=== PATIENT | female | born 1960 | race Caucasian/White ===

== ENCOUNTER 2024-12-31 15:57 | Outpatient (REF) | payer MEDICARE, SELFPAY ==
--- OUTSIDE RECORDS SUMMARY | 2024-12-31 14:45 | XMS_ITS | Encounter Summary ---
Author Organization [employer] Address [address] [facility] 7[address] [place] [address] Care Team Providers Care Senior Svp Name Role Phone Humza Centeno MD Primary Care Prov ider Reason for Referral * Imaging (Routine) - Authorized Specialty Diagnoses / Procedures Referred By Contac t Referred To Contact Radiology Diagnoses Encounter for screening mammogram for malignant neoplasm of breast Procedures BI Mammogram Screening Tomosynthesis Bilateral Humza Centeno MD [address] [place] [address] Phone: tel: fax: [address] Phone: tel: fax: Referral ID Status Reason Start Date Expiration Date V isits Requested Visits Authorized [id number] Authorized 12/31/2024 12/31/2025 1 1 Encounter Details Date Type Department Care Team (Late st Contact Info) Description 12/31/2024 2:45 PM EDT Office Visit [facility] [address] [place], [place] [phone] Humza Centeno MD [address] [place] [address] Encounter for screening mammogram for malignant neoplasm of breast (Primary Dx); Overweight; Pain in both feet; Anemia, unspecified type; Screening-pulmonary TB Social History Tobacco Use Types Packs/Day Years Used Date Smoking Tobacco: Never Smokeless Tobacco: Never Alcohol Use Standard Drinks/Week Comments Never 0 (1 standard drink = 0.6 oz pur e alcohol) Depression Answer Date Recorded Patient Health Questionnaire-9 Score 2 12/31/2024 Patient Health Questionnaire-9 Score 2 12/31/2024 Last PHQ-9: Questionnaire Data Not on file 0 12/31/2024 Housing Stability Answer Date Recorded What is your housing situation today? I have winter schmidt 12/31/[address] you li ve. Do you have problems with any of the following? None of the above 12/31/2024 Food Insecurity Answer Date Recorded Within the past 12 months, y ou worried that your food would run out before you got money to buy more: Never True 12/31/2024 Within the past 12 months,th e food you bought just didn't last and you didn't have enough money to get more: Never True Transportation Answer Date Recorded In the past 12 months, has l ack of transportation kept you from medical appts, meetings, work or from getting things needed for daily living? No 12/31/2024 Utilities Answer Date Recorded In the past 12 months, has t he electric, gas, oil or water company threatened to shut off services in your home? No 12/31/2024 Depression Answer Date Recorded Patient Health Questionnaire-2 Score 1 12/31/2024 Internet Access Answer Date Recorded Internet Access Q1 Yes 12/31/2024 Internet Access Q2 Not on file 12/31/2024 Comments Unknown Sex and Gender Information Value Date Recorded Sex Assigned at Female 02/05/2022 10:32 AM EDT Legal Sex Female 10:32 AM EDT Gender Identity Female 11/17/2024 11:14 AM EDT Sexual Orientation Straight 11/17/2024 11 :14 AM EDT documented as of this encounter Last Filed Vital Signs Vital Sign Reading Time Taken Comments Blood Pressure 142/78 12/31/2024 2:54 PM EDT Pulse 80 12/31/2024 2:54 PM EDT Temperature 37.1 C (98.7 F) 12/31/2024 2:54 PM EDT Respiratory Rate 20 12/31/2024 2:54 PM EDT Oxygen Saturation - - Inhaled Oxygen Concentration - - Weight 71.7 kg (158 lb) 12/31/2024 2:54 PM EDT Height - - Body Mass Index - - documented in this encounter Functional Status * Over the past 2 weeks, how often have you been bothered by any of the following problems? Question Answer Date of Assessment Author Patient Health Questionnaire-2 Score 1 12/08 3:08 PM CAMILAT Sindy Chisholm MA * Little interest or pleasure in doing things Answer Date of Assessment Author Not at all 12/31/2024 3:08 PM EDT Jing Chisholm MA * Feeling down, depressed, or hopeless Answer Date of Assessment Author Several days 12/31/2024 3:08 PM Jing Jones MA * Trouble falling or staying asleep, or sleeping too much Answer Date of Assessment Author Not at all 12/31/2024 3:08 PM Jing Jones MA * Feeling tired or having little energy Answer Date of Assessment Author Not at all 12/31/2024 3:08 PM Jing Jones MA * Poor appetite or overeating Answer Date of Assessment Author Several days 12/31/2024 3:08 PM Jing Jones MA * Feeling bad about yourself - or that you are a failure or have let yourself or your family down Answer Date of Assessment Author Not at all 12/31/2024 3:08 PM Jing Jones MA * Trouble concentrating on things, such as reading the newspaper or watching television Answer Date of Assessment Author Not at all 12/31/2024 3:08 PM Jing Jones MA * Moving or speaking so slowly that other people could have noticed? Or the opposite - being so fidgety or restless that you have been moving around a lot more than usual. Answer Date of Assessment Author Not at all 12/31/2024 3:08 PM Jing Jones MA * Thoughts that you would be better off or hurting yourself in some way Answer Date of Assessment Author Not at all 12/31/2024 3:08 PM Jing Jones MA * Patient Health Questionnaire-9 Score Answer Date of Assessment Author 2 12/31/2024 3:08 PM Jing Jones MA * How difficult have these problems made it for you to do your work, take care of things at home, or get along with other people? Answer Date of Assessment Author Not difficult at all 12/31/2024 3:08 PM EDT Sindy Arboleda MA documented as of this encounter Plan of Treatment Upcoming Encounters Date Type Department Care Team (Late st Contact Info) Description 02/23/2025 4:00 PM EST Office Visit [facility] [address] [place] [address] Humza Centeno MD [address] [place] [address] Scheduled Orders Name Type Priority Associated Diagnoses Orde r Schedule HIV-1/2 Antigen and Antibodies, Fourth Generation, with Reflexes Lab Routine Overweight Expected: 12/31/2024 (Approximate), Expires: 12/31/2025 Hepatitis C Antibody with Reflex to HCV, RNA, Quantitative, Real-Time PCR Lab Routine Overweight Expected: 12/31/2024, Expires: 12/31/2025 BI Mammogram Screening Tomosynthesis Bilateral Imaging Routine Encounter for screening mammogram for malignant neoplasm of breast Expected: 12/31/2024, Expires: 03/02/2026 XR Foot 3+ Views Right Imaging Routine Pain in both feet Expected: 12/31/2024, Expires: 12/31/2025 XR Foot 3+ Views Left Imaging Routine Pain in both feet Expected: 12/31/2024, Expires: 12/31/2025 T-SPOT .TB Lab Routine Screening-pulmonary TB Expected: 12/31/2024 (Approximate), Expires: 12/31/2025 documented as of this encounter Procedures Procedure Name Priority Date/Time Associated Diagnosis Comments VITAMIN B12/FOLATE, SERUM PANEL Routine 12/31/2024 4:09 PM EDT Anemia, unspecified type TSH W/REFLEX TO FT4 Routine 12/31/2024 4 :09 PM EDT Overweight CBC WITH AUTO DIFFERENTIAL Routine 12/31/2024 4:09 PM EDT Overweight IRON AND TOTAL IRON BINDING CAPACITY Routine 12/31/2024 4:09 PM EDT Anemia, unspecified type HEMOGLOBIN A1C Routine 12/31/2024 4:09 PM EDT Overweight LIPID PANEL, STANDARD Routine 12/31/2024 4:09 PM EDT Overweight COMPREHENSIVE METABOLIC PANEL Routine 12/31/2024 4:09 PM EDT Overweight documented in this encounter Results * Iron And Total Iron Binding Capacity (12/31/2024 4:09 PM EDT) Iron 55 30 - 160 mcg/dL [facility] Total Iron Binding Capacity 339 228 - 428 mcg/dL [facility] Percent Iron Saturation 16 15 - 50 % [facility] Unsaturated Iron Binding 284 ug/dL [facility] Blood Venous blood specimen / Unknown 12/31/2024 4:09 PM EDT 12/31/2024 5:38 PM EDT us Humza Greco MD LAB BLOOD ORDERABL ES Final Result [facility] [address] [place] [phone] * Vitamin B12 (Cobalamin) and Folate Panel, Serum (12/31/2024 4:09 PM EDT) Vitamin B12 269 200 - 900 pg/mL [facility] Comment:NORMAL 200-900 PG/ML INDETERMINATE 160-199 PG/ML DEFICIENT < 160 PG/ML Folate 11.0 > or = 4.0 ng/mL [facility] Comment:Reference Values:> o r = 4.0 ng/mL< 4.0 ng/mL suggests folate deficiency Methotrexate, aminopterin and folinic acid(leucovorin) are chemotherapeutic agents whose molecularstructures are similar to folate; therefore, the Architectfolate assay cannot be used for patients using these drugs. Blood Venous blood specimen / Unknown 12/31/2024 4:09 PM EDT 12/31/2024 5:38 PM EDT Humza Greco MD LAB BLOOD ORDERABL ES Final Result Performing Organization Address [facility]/ZIP Co de Phone Number [facility] [address] [place] [phone] * (ABNORMAL) TSH W/Reflex to FT4 (12/31/2024 4:09 PM EDT) TSH reflex Free T4 13.97(H) 0.32 - 4.0 uIU/mL [facility] Blood Venous blood specimen / Unknown 12/31/2024 4:09 PM EDT 12/31/2024 5:38 PM EDT Humza Greco MD LAB BLOOD ORDERABL ES Final Result Performing Organization Address [facility] Co de Phone Number [facility] [address] [place] [phone] * (ABNORMAL) Lipid Panel, Standard (12/31/2024 4:09 PM EDT) Triglycerides 211(H) <150 mg/dL [facility] Comment:Desirable Triglyceri de: less than 150 mg/dLBorderline High Triglyceride 150-199 mg/dLHigh Triglyceride: 200-499 mg/dLVery High Triglyceride: greater than or equal to 5OO mg/dL Cholesterol 158 <200 mg/dL [facility] Comment:Desirable Cholestero l: less than 200 mg/dLBorderline High Cholesterol: 200-239 mg/dLHigh Cholesterol: greater than 239 mg/dL LDL Cholesterol Calculated 77 <100 mg/dL [facility] Comment:Desirable LDL: less than 100 mg/dLNear Optimal/Above Optimal LDL: 110- 129 mg/dLBorderline High LDL: 130-159 mg/dLHigh LDL: 160-189 mg/dLVery High LDL: greater than or equal to 190 mg/dL HDL Cholesterol 39(L) >40 mg/dL [facility] Comment:Desirable HDL: great er than 40 mg/dL Note: This HDL assay may give artificially low results in patients with liver disease. Blood Venous blood specimen / Unknown 12/31/2024 4:09 PM EDT 12/31/2024 5:38 PM EDT Humza Greco MD LAB BLOOD ORDERABL ES Final Result Performing Organization Address City/[facility]/ZIP Co de Phone Number [facility] [address] [place] [phone] [phone] * (ABNORMAL) Hemoglobin A1c (12/31/2024 4:09 PM EDT) Hemoglobin A1c 6.5(H) <6.0 % [facility] Comment:Hemoglobin A1C Refer ence Range Adults: 4.8 - 6.0 % Non diabetic: < 6.0 % Goal: < 7.0 %Additional Action Suggested: > 8.0 %Note: Hemoglobin A1c results are invalid for patients with abnormal amounts of HbF. Blood transfusions may impact the HbA1c concentration in the patient sample. Estimated Average Glucose 140 mg/dL [facility] Comment:eAG = Estimated ave rage glucose which is %A1C expressed asaverage glucose, using the formula of the [id number] Glucose study (ADAG), Diabetes Care, Vol.31,#8,Nov. 2007 Blood Venous blood specimen / Unknown 12/31/2024 4:09 PM EDT 12/31/2024 5:38 PM EDT Humza Greco MD LAB BLOOD ORDERABL ES Final Result Performing Organization Address City/[facility]/ZIP Co de Phone Number [facility] [address] [place] [address] [phone] * (ABNORMAL) Comprehensive Metabolic Panel (12/31/2024 4:09 PM EDT) Sodium 144 135 - 145 mmol/L [facility] Potassium 3.6 3.3 - 5.1 mmol/L [facility] Chloride 110(H) 96 - 108 mmol/L [facility] Carbon Dioxide 26 22 - 29 mmol/L [facility] Anion Gap 12 12 - 20 [facility] Urea Nitrogen (BUN) 13 9 - 16 mg/dL [facility] Creatinine, Serum 0.58 0.5 - 1.4 mg/dL [facility] Estimated Glomerular Filt Rate >60 [facility] Comment:Chronic Kidney Disea se: Estimated GFR < 60 mL/min/[id number] Kidney Disease: Estimated GFR < 15 mL/min/1.73m2 Glucose 104 60 - 115 mg/dL [facility] Calcium 8.9 8.4 - 10.2 mg/dL [facility] Bilirubin, Total 0.4 0.0 - 1.0 mg/dL [facility] Aspartate Amino Transferase 26 5 - 31 U/L [facility] Alanine Aminotransferase 23 0 - 31 U/L [facility] Total Protein 7.0 6.5 - 8.0 g/dL [facility] Albumin Level 4.3 3.5 - 5.0 g/dL [facility] Alkaline Phosphatase 108 39 - 117 U/L [facility] Blood Venous blood specimen / Unknown 12/31/2024 4:09 PM EDT 12/31/2024 5:38 PM EDT us Humza Greco MD LAB BLOOD ORDERABL ES Final Result [facility] [address] [place] [phone] * (ABNORMAL) CBC auto differential (12/31/2024 4:09 PM EDT) White Blood Count 5.3 4.8 - 10.8 X10*3/uL [facility] Red Blood Count 3.82(L) 4.20 - 5.50 X10*6/uL [facility] Hemoglobin 11.7(L) 12.0 - 16.0 g/dl [facility] Hematocrit 34.7(L) 37.0 - 47.0 % [facility] Mean Corpuscular Volume 90.8 80.0 - 98.0 fL [facility] Mean Corpuscular Hemoglobin 30.6 27.0 - 33.0 pg [facility] Mean Corpuscular HGB Conc 33.7 31.0 - 35.0 g/dl [facility] Red Cell Distribution Width 12.9 11.0 - 16.0 % [facility] Platelet Count 217 160 - 400 X10*3/uL [facility] Mean Platelet Volume 9.7 9.4 - 12.3 fL [facility] Neutrophils Percent Auto 56.4 45 - 73 % [facility] Imm Gran Pct Auto 0.4 0.0 - 0.4 % [facility] Lymphocytes Percent Auto 31.6 20 - 40 % [facility] Monocytes Percent Auto 9.3 2 - 11 % [facility] Eosinophils Percent Auto 1.7 0 - 4 % [facility] Basophils Percent Auto 0.6 0 - 2 % [facility] NRBC Pct Auto 0.0 0.0 - 0.2 /100WBC [facility] Neutrophils Absolute Auto 3.0 2.0 - 8.3 x10*3/uL [facility] Imm Gran Abs Auto 0.02 0.00 - 0.03 X10*3/uL [facility] Lymphocytes Absolute Auto 1.7 1.2 - 4.9 X10*3/uL [facility] Monocytes Absolute Auto 0.5 0.1 - 1.2 X10*3/uL [facility] Eosinophils Absolute Auto 0.1 0.0 - 0.4 X10*3/uL [facility] Basophils Absolute Auto 0.0 0.0 - 0.2 X10*3/uL [facility] NRBC Abs Auto 0.000 0.0 - 0.012 X10*3/uL [facility] Blood Venous blood specimen / Unknown 12/31/2024 4:09 PM EDT 12/31/2024 5:38 PM EDT us Humza Greco MD LAB BLOOD ORDERABL ES Final Result [facility] [address] [place] [phone] documented in this encounter Visit Diagnoses Diagnosis Encounter for screening mammogram for malignant neoplasm of breast- Primary Overweight Pain in both feet Anemia, unspecified type Screening-pulmonary TB Screening examination for pulmonary tuberculosis documented in this encounter Additional Health Concerns Assessment Noted Time PHQ-9 Depression Total Score: 2 01/01/20 3:08 PM EDT documented as of this encounter Care Teams Senior Svp Relationship Specialty Start Date End Date Humza Centeno MD [address] [place] [phone] PCP - General Internal Medicine 11/26/24 documented as of this encounter
[2024-12-31 17:43] LABS: MANUAL DIFF FLAG NO
[2024-12-31 18:13] LABS: Hematocrit 34.7 % (37.0-47.0); Hemoglobin 11.7 g/dl (12.0-16.0); Imm Gran Abs Auto 0.02 X10*3/uL (0.00-0.03); Imm Gran Pct Auto 0.4 % (0.0-0.4); Lymphocytes Absolute Auto 1.7 X10*3/uL (1.2-4.9); Mean Corpuscular HGB Conc 33.7 g/dl (31.0-35.0); Mean Corpuscular Hemoglobin 30.6 pg (27.0-33.0); Mean Corpuscular Volume 90.8 fL (80.0-98.0); NRBC Abs Auto 0.000 X10*3/uL (0.0-0.012); NRBC Pct Auto 0.0 /100WBC (0.0-0.2); Platelet Count 217 X10*3/uL (160-400); Red Blood Count 3.82 X10*6/uL (4.20-5.50); White Blood Count 5.3 X10*3/uL (4.8-10.8)
[2024-12-31 18:42] LABS: Alanine Aminotransferase 23 U/L (0-31); Albumin Level 4.3 g/dL (3.5-5.0); Alkaline Phosphatase 108 U/L (39-117); Anion Gap 12 (12-20); Aspartate Amino Transferase 26 U/L (5-31); Blood Urea Nitrogen 13 mg/dL (9-16); Calcium 8.9 mg/dL (8.4-10.2); Carbon Dioxide 26 mmol/L (22-29); Chloride 110 mmol/L (96-108); Cholesterol 158 mg/dL (<200); Estimated Glomerular Filt Rate > 60; HDL Cholesterol 39 mg/dL (>40); Iron 55 mcg/dL (30-160); Percent Iron Saturation 16 % (15-50); Potassium 3.6 mmol/L (3.3-5.1); Sodium 144 mmol/L (135-145); Total Iron Binding Capacity 339 mcg/dL (228-428); Total Protein 7.0 g/dL (6.5-8.0); Triglycerides 211 mg/dL (<150); Unsaturated Iron Binding 284 ug/dL
[2024-12-31 18:58] LABS: Folate 11.0 ng/mL (> or = 4.0); Vitamin B12 269 pg/mL (200-900)
[2024-12-31 19:13] LABS: Free T4 (Free Thyroxine) 0.87 ng/dL (0.71-1.85)
--- OUTSIDE RECORDS SUMMARY | 2024-12-31 19:52 | XMS_ITS | Encounter Summary ---
Author Organization [employer] Address [address] [facility] 7[address] [place] [address] Care Team Providers Care Missionary Coordinator Name Role Phone Humza Centeno MD Primary Care Prov ider Encounter Details Date Type Department Care Team ([facility] Contact Info) Description 12/31/2024 Orders Only [facility] [address] [place], [place] [phone] Humza Centeno MD [address] [place] [address] Social History Tobacco Use Types Packs/Day Years [...] AM EDT documented as of this encounter Functional Status * Over the past 2 weeks, how often have you been bothered by any of the following problems? Question Answer Date of Assessment Author Patient Health Questionnaire-2 Score 1 12/08 3:08 PM EDT Sindy Chisholm MA * Little interest or [...] Author Not at all 12/31/2024 3:08 PM CAMILAT Jing Chisholm MA * Feeling tired or having little energy Answer Date of Assessment Author Not at all 12/31/2024 3:08 PM EDJing Rdz MA * Poor appetite or overeating Answer [...] 3:08 PM EDT Jing Chisholm MA * Thoughts that you would be better off or hurting yourself in some way Answer Date of Assessment Author Not at all 12/31/2024 3:08 PM EDT Jing Chisholm MA * Patient Health Questionnaire-9 Score Answer Date of Assessment Author 2 12/31/2024 3:08 PM EDT Jing Chisholm MA * How difficult have these problems [...] Description 02/23/2025 4:00 PM EST Office Visit [facility] [address] [place] [address] Humza Centeno MD [address] [place] [address] documented as of this encounter Procedures Procedure Name Priority Date/Time Associated Diagnosis Comments T4, FREE Routine 12/31/2024 4:09 PM EDT documented in this encounter Results * T4, Free (12/31/2024 4:09 PM EDT) Free T4 (Free Thyroxine) 0.87 0.71 - 1.85 ng/dL [facility] 12/31/2024 4:09 PM EDT 12/31/2024 5:38 PM EDT us Humza Greco MD LAB BLOOD ORDERABL ES Final Result [facility] [address] [place] [phone] documented in this encounter Visit Diagnoses Not on filedocumented in this encounter Additional Health Concerns Assessment Noted Time PHQ-9 Depression Total Score: 2 01/01/20 3:08 PM EDT documented as of this encounter Care Teams Missionary Coordinator Relationship Specialty Start Date End Date Humza Centeno MD [address] [place] [phone] PCP - General Internal Medicine 11/26/24 documented as of this encounter
--- OUTSIDE RECORDS SUMMARY | 2024-12-31 19:52 | XMS_ITS | Encounter Summary ---
Author Organization [employer] Address [address] [facility] [address] [place] [address] Care Team Providers Care Manufacturing Engineer Paint Name Role Phone Humza Centeno MD Primary Care Prov ider Encounter Details Date Type Department Care Team (Latest Contact Info) Description 12/31/2024 Travel Social History Tobacco Use Types Packs/Day Years [...] is your housing situation today? I have wintermayuri schmidt 12/31/[address] you [...] Health Questionnaire-2 Score 1 12/08 3:08 PM Sindy Jones MA * Little interest or pleasure in doing things Answer Date of Assessment Author Not at all 12/31/2024 3:08 PM CAMIALT Jing Chisholm MA * Feeling down, depressed, [...] Description 02/23/2025 4:00 PM EST Office Visit [facility] [address] [place] [address] Humza Centeno MD [address] [place] [address] documented as of this encounter Visit Diagnoses Not on filedocumented in this encounter Additional Health Concerns Assessment Noted Time PHQ-9 Depression Total Score: 2 01/01/20 3:08 PM EDT documented as of this encounter Care Teams Manufacturing Engineer Paint Relationship Specialty Start Date End Date Humza Centeno MD [address] [place] [address] PCP - General Internal Medicine 11/26/24 documented as of this encounter
--- OUTSIDE RECORDS SUMMARY | 2024-12-31 19:52 | XMS_ITS | Clinical Summary ---
Author Organization [employer] Address [address] [facility] 7[address] [place] [address] Care Team Providers Care Security Officer Name Role Phone Humza Centeno MD Primary Care Prov ider Allergies No known active allergies Medications triamcinolone (Kenalog) 0.1 % cream Apply topically if needed in the morning and at bedtime (pain and swelling). 30 g 5 5 Active gabapentin (Neurontin) 100 MG capsule Take 2 capsules (200 mg) by mouth 2 times daily. 120 capsule 11 5 11/27/19 26 Active Hydrocortisone, Perianal, (Preparation H) 1 % creamIndication s:Thrombosed external hemorrhoid Apply to anal area bid prn 30 g 2 5 Active Hospital, Clinic, or Other Facility Administered Medication Ordered Dose Route Frequency Start Date End Date Status cyanocobalamin (Vitamin B-12) injection 1,000 mcgIndications:Vitamin B12 deficiency 1000 mcg IM Once 11/26/2024 Active Active Problems Problem Noted Date Diagnosed Date Encounter for medical examination to establish c are 11/26/2024 Assessment & Plan (11/26/2024 2:23 PM EDT): Patient is a poor historian Last pcp visit >5 yrs ER visit: May due to heel pain Hospitalization: - Pmhx: eczema, Pshx: csec, gallbladder, appendicitis, hemorrhoids surgery All: - Meds: as above Encounters Date Type Department Care Team Description 12/31/2024 2:45 PM EDT Office Visit [facility] [address] [place] [address] Humza Centeno MD Encounter for screening mammogram for malignant neoplasm of breast (Primary Dx); Overweight; Pain in both feet; Anemia, unspecified type; Screening-pulmonary TB 12/31/2024 Orders Only [facility] [address] [place] [address] Humza Centeno MD 12/31/2024 Travel 12/30/2024 Telephone [facility] [address] [place] [address] Humza Centeno MD chart prep 12/01/2024 3:40 PM EDT Office Visit [facility] [address] [place] [phone] Sarah Zabala MD Thrombosed external hemorrhoid (Primary Dx); Chronic pain of right ankle 12/01/2024 Travel 11/30/2024 Telephone [facility] [address] [place] [phone] Humza Centeno MD Nurse Triage 11/26/2024 1:45 PM EDT Telemedicine [facility] [address] [place] [address] Humza Centeno MD Encounter for medical examination to establish care (Primary Dx); Vitamin B12 deficiency 11/26/2024 Travel 11/25/2024 Telephone [facility] [address] [place] [address] Humza Centeno MD chart prep 11/25/2024 Travel 11/24/2024 Telephone [facility] [address] [place] [address] Humza Centeno MD No Show 11/24/2024 Telephone [facility] [address] [place] [address] Humza Centeno MD 11/24/2024 Travel 11/23/2024 Telephone [facility] [address] [place] [address] Humza Centeno MD chart prep 11/18/2024 Telephone [facility] [address] [place] [address] Aditi Luevano LPN 11/05/2024 Patient Outreach [facility] [address] [place] [address] Luis E Suazo MD Pre-visit Planning (Pre visit planning LVM ) 10/19/2024 Telephone [facility] [address] [place] [address] Luis E Suazo MD 10/05/2024 Telephone [facility] [address] [place], [place] [phone] Luis E Suazo MD CHW - New Patient Assistance from Last 3 Months Immunizations Immunization Administration Dates Next Due Hep A, Adult 01/11/2011,11/03/2009 Hep B, adult 01/11/2011,11/03/2009,12/03/2008 TD (adult), 2 Lf tetanus tox oid, preservative free, adsorbed 07/01/2001 Tdap 01/11/2011 Family History Medical History Relation Name Comments Cancer Neg Hx Social History Tobacco Use Types Packs/Day Years Used Date Smoking Tobacco: Never Smokeless Tobacco: Never Tobacco Cessation:Counseling Given: Not Answered Alcohol Use Standard Drinks/Week Comments Never 0 [...] Orientation Straight 11/17/2024 11 :14 AM EDT Last Filed Vital Signs Vital Sign Reading Time Taken Comments Blood Pressure 142/78 12/31/2024 2:54 PM EDT Pulse 80 12/31/2024 2:54 PM EDT Temperature 37.1 C (98.7 F) 12/31/2024 2:54 PM EDT Respiratory Rate 20 12/31/2024 2:54 PM EDT Oxygen Saturation 98% 12/01/2024 3:28 PM EDT Inhaled Oxygen Concentration - - Weight 71.7 kg (158 lb) 12/31/2024 2:54 PM EDT Height - - Body Mass Index - - Plan of Treatment Upcoming Encounters Date Type Department Care Team ([facility] st Contact Info) Description 02/23/2025 4:00 PM EST Office Visit [facility] [address] [place] [address] Humza Centeno MD [address] [place] [address] Health Maintenance Due Date Last Done Comments CT Colonography 1958 Colonoscopy 1958 Colorectal Cancer Screening 1958 FIT DNA/Cologuard 1958 FIT 1958 FOBT 1958 Sigmoidoscopy 1958 Hepatitis C Screening 1976 Mammogram 1998 Pneumococcal Vaccine: 50+ Years (1 of 1 - PCV) 2008 Zoster Vaccines (1 of 2) 2008 DTaP/Tdap/Td Vaccines (2 - T d or Tdap) 01/11/2021 01/11/2011, 07/01/2001 COVID-19 Vaccine (1 - 2023-2 5 season) 2024 Influenza Vaccine (#1) 2024 Tobacco Screening 12/01/2025 12/01/2024 Alcohol/Substance Use Screening 12/31/2025 12/31/2024 Depression Screening 12/31/2025 12/31/2024, 12/31/2024 SDOH Screening 12/31/2025 12/31/2024 Lipid Panel 12/31/2029 12/31/2024 RSV Patients and Patients Aged 60 years or older (1 - 1-dose 75+ series) 2033 Hepatitis A Vaccines Aged Out 01/11/2011, 11/03/2009 No longer eligible based on patient's age to complete this topic Hepatitis B Vaccines Completed 01/11/2011, 11/03/2009, 12/03/2008 HIB Vaccines Aged Out No longer eligi ble based on patient's age to complete this topic HPV Vaccines Aged Out No longer eligi ble based on patient's age to complete this topic IPV Vaccines Aged Out No longer eligi ble based on patient's age to complete this topic Meningococcal B Vaccine Aged Out No l onger eligible based on patient's age to complete this topic Meningococcal Vaccine Aged Out No fernanda jose eligible based on patient's age to complete this topic RSV under 20 months Aged Out No longe r eligible based on patient's age to complete this topic Rotavirus Vaccines Aged Out No longer eligible based on patient's age to complete this topic Procedures Procedure Name Priority Date/Time Associated Diagnosis Comments T4, FREE Routine 12/31/2024 4:09 PM EDT IRON AND TOTAL IRON BINDING CAPACITY Routine 12/31/2024 4:09 PM EDT Anemia, unspecified type VITAMIN B12/FOLATE, SERUM PANEL Routine 12/31/2024 4:09 PM EDT Anemia, unspecified type TSH W/REFLEX TO FT4 Routine 12/31/2024 4 :09 PM EDT Overweight LIPID PANEL, STANDARD Routine 12/31/2024 4:09 PM EDT Overweight HEMOGLOBIN A1C Routine 12/31/2024 4:09 PM EDT Overweight COMPREHENSIVE METABOLIC PANEL Routine 12/31/2024 4:09 PM EDT Overweight CBC WITH AUTO DIFFERENTIAL Routine 12/31/2024 4:09 PM EDT Overweight from Last 3 Months Results * Vitamin B12 (Cobalamin) and Folate Panel, Serum (12/31/2024 4:09 PM EDT) Vitamin B12 269 200 - 900 pg/mL [facility] Comment:NORMAL 200-900 PG/M L INDETERMINATE 160-199 PG/ML DEFICIENT < 160 PG/ML Folate 11.0 > or = 4.0 ng/mL [facility] Comment:Reference Values:> o r = 4.0 ng/mL< 4.0 ng/mL suggests folate deficiency Methotrexate, aminopterin and folinic acid(leucovorin) are chemotherapeutic agents whose molecularstructures are similar to folate; therefore, the Architectfolate assay cannot be used for patients using these drugs. Blood Venous blood specimen / Unknown 12/31/2024 4:09 PM EDT 12/31/2024 5:38 PM EDT Humza Greco MD LAB BLOOD ORDERABL ES Final Result [facility] [address] [place] [phone] [phone] * (ABNORMAL) TSH W/Reflex to FT4 (12/31/2024 4:09 PM EDT) TSH reflex Free T4 13.97(H) 0.32 - 4.0 uIU/mL [facility] Blood Venous blood specimen / Unknown 12/31/2024 4:09 PM EDT 12/31/2024 5:38 PM EDT us Humza Greco MD LAB BLOOD ORDERABL ES Final Result [facility] [address] [place] [phone] * (ABNORMAL) CBC auto differential (12/31/2024 4:09 PM EDT) White Blood Count 5.3 4.8 - 10.8 X10*3/uL [facility] Red Blood Count 3.82(L) 4.20 - 5.50 X10*6/uL [facility] Hemoglobin 11.7(L) 12.0 - 16.0 g/dl [facility] Hematocrit 34.7(L) 37.0 - 47.0 % [facility] Mean Corpuscular Volume 90.8 80.0 - 98.0 fL [facility] Mean Corpuscular Hemoglobin 30.6 27.0 - 33.0 pg [facility] Mean Corpuscular HGB Conc 33.7 31.0 - 35.0 g/dl [facility] Red Cell Distribution Width 12.9 11.0 - 16.0 % [facility] Platelet Count 217 160 - 400 X10*3/uL [facility] Mean Platelet Volume 9.7 9.4 - 12.3 fL [facility] Neutrophils Percent Auto 56.4 45 - 73 % [facility] Imm Gran Pct Auto 0.4 0.0 - 0.4 % [facility] Lymphocytes Percent Auto 31.6 20 - 40 % [facility] Monocytes Percent Auto 9.3 2 - 11 % [facility] Eosinophils Percent Auto 1.7 0 - 4 % [facility] Basophils Percent Auto 0.6 0 - 2 % [facility] NRBC Pct Auto 0.0 0.0 - 0.2 /100WBC [facility] Neutrophils Absolute Auto 3.0 2.0 - 8.3 x10*3/uL [facility] Imm Gran Abs Auto 0.02 0.00 - 0.03 X10*3/uL [facility] Lymphocytes Absolute Auto 1.7 1.2 - 4.9 X10*3/uL [facility] Monocytes Absolute Auto 0.5 0.1 - 1.2 X10*3/uL [facility] Eosinophils Absolute Auto 0.1 0.0 - 0.4 X10*3/uL [facility] Basophils Absolute Auto 0.0 0.0 - 0.2 X10*3/uL [facility] NRBC Abs Auto 0.000 0.0 - 0.012 X10*3/uL [facility] Blood Venous blood specimen / Unknown 12/31/2024 4:09 PM EDT 12/31/2024 5:38 PM EDT Humza Greco MD LAB BLOOD ORDERABL ES Final Result Performing Organization Address [facility] [address] [facility] de Phone Number [facility] [address] [place] [phone] * Iron And Total Iron Binding Capacity (12/31/2024 4:09 PM EDT) Pathologist [facility] Iron 55 30 - 160 mcg/dL [facility] Total Iron Binding Capacity 339 228 - 428 mcg/dL [facility] Percent Iron Saturation 16 15 - 50 % [facility] Unsaturated Iron Binding 284 ug/dL [facility] Blood Venous blood specimen / Unknown 12/31/2024 4:09 PM EDT 12/31/2024 5:38 PM EDT Humza Greco MD LAB BLOOD ORDERABL ES Final Result Performing Organization Address [facility] [address]/[facility] Co de Phone Number [facility] [address] [place] [phone] * T4, Free (12/31/2024 4:09 PM EDT) Free T4 (Free Thyroxine) 0.87 0.71 - 1.85 ng/dL [facility] 12/31/2024 4:09 PM EDT 12/31/2024 5:38 PM EDT Humza Greco MD LAB BLOOD ORDERABL ES Final Result Performing Organization Address [facility] [address]/[facility] Co de Phone Number [facility] [address] [place] [phone] * (ABNORMAL) Hemoglobin A1c (12/31/2024 4:09 PM EDT) Hemoglobin A1c 6.5(H) <6.0 % [facility] Comment:Hemoglobin A1C Refer ence Range Adults: 4.8 - 6.0 % Non diabetic: < 6.0 % Goal: < 7.0 %Additional Action Suggested: > 8.0 %Note: Hemoglobin A1c results are invalid for patients with abnormal amounts of HbF. Blood transfusions may impact the HbA1c concentration in the patient sample. Estimated Average Glucose 140 mg/dL [facility] Comment:eAG = Estimated ave rage glucose which is %A1C expressed asaverage glucose, using the formula of the [id number] Glucose study (ADAG), Diabetes Care, Vol.31,#8,Nov. 2007 Blood Venous blood specimen / Unknown 12/31/2024 4:09 PM EDT 12/31/2024 5:38 PM EDT Humza Greco MD LAB BLOOD ORDERABL ES Final Result Performing Organization Address [facility] [address]/[facility] Co de Phone Number [facility] [address] [place] [phone] * (ABNORMAL) Lipid Panel, Standard (12/31/2024 4:09 PM EDT) Triglycerides 211(H) <150 mg/dL [facility] Comment:Desirable Triglyceri de: less than 150 mg/dLBorderline High Triglyceride 150-199 mg/dLHigh Triglyceride: 200-499 mg/dLVery High Triglyceride: greater than or equal to 5OO mg/dL Cholesterol 158 <200 mg/dL [facility] Comment:Desirable Cholestero l: less than 200 mg/dLBorderline High Cholesterol: 200-239 mg/dLHigh Cholesterol: greater than 239 mg/dL LDL Cholesterol Calculated 77 <100 mg/dL [facility] Comment:Desirable LDL: less than 100 mg/dLNear Optimal/Above Optimal LDL: 110- 129 mg/dLBorderline High LDL: 130-159 mg/dLHigh LDL: 160-189 mg/dLVery High LDL: greater than or equal to 190 mg/dL HDL Cholesterol 39(L) >40 mg/dL [facility] Comment:Desirable HDL: great er than 40 mg/dL Note: This HDL assay may give artificially low results in patients with liver disease. Blood Venous blood specimen / Unknown 12/31/2024 4:09 PM EDT 12/31/2024 5:38 PM EDT Humza Greco MD LAB BLOOD ORDERABL ES Final Result [facility] [address] [place] [phone] * (ABNORMAL) Comprehensive Metabolic Panel (12/31/2024 4:09 PM EDT) Sodium 144 135 - 145 mmol/L [facility] Potassium 3.6 3.3 - 5.1 mmol/L [facility] Chloride 110(H) 96 - 108 mmol/L [facility] Carbon Dioxide 26 22 - 29 mmol/L [facility] Anion Gap 12 12 - 20 [facility] Urea Nitrogen (BUN) 13 9 - 16 mg/dL [facility] Creatinine, Serum 0.58 0.5 - 1.4 mg/dL [facility] Estimated Glomerular Filt Rate >60 [facility] Comment:Chronic Kidney Disea se: Estimated GFR < 60 mL/min/1.00r2Vkwgea Kidney Disease: Estimated GFR < 15 mL/min/1.73m2 Glucose 104 60 - 115 mg/dL [facility] Calcium 8.9 8.4 - 10.2 mg/dL [facility] Bilirubin, Total 0.4 0.0 - 1.0 mg/dL [facility] Aspartate Amino Transferase 26 5 - 31 U/L [facility] Alanine Aminotransferase 23 0 - 31 U/L [facility] Total Protein 7.0 6.5 - 8.0 g/dL [facility] Albumin Level 4.3 3.5 - 5.0 g/dL [facility] Alkaline Phosphatase 108 39 - 117 U/L [facility] Blood Venous blood specimen / Unknown 12/31/2024 4:09 PM EDT 12/31/2024 5:38 PM EDT Humza Greco MD LAB BLOOD ORDERABL ES Final Result [facility] [address] [place] [phone] [phone] from Last 3 Months Insurance [id number] [employer] [address] [place] [address] Care Teams Security Officer Relationship Specialty Start Date End Date ReynoldsHumza Qureshi MD [address] [place] [phone] PCP - General Internal Medicine 11/26/24
--- OUTSIDE RECORDS SUMMARY | 2024-12-31 19:52 | XMS_ITS | Encounter Summary ---
Author Organization [employer] Address [address] [facility] 7 [place] [address] Care Team Providers Care Chemical Dependency Professional Name Role Phone Humza Centeno MD Primary Care Prov ider Reason for Visit * Reason Onset Date Comments chart prep 12/30/2024 Encounter Details Date Type Department Care Team ([facility] st Contact Info) Description 12/30/2024 Telephone [facility] [address] [place], [place] [phone] Humza Centeno MD [address] [place] [address] chart prep Social History Tobacco Use Types Packs/Day Years [...] your housing situation today? I have winter sing 12/31/[address] you li [...] AM EDT documented as of this encounter Miscellaneous Notes * Telephone Encounter - Sindy Chisholm MA - 12/30/2024 4:23 PM EDT Chart Prep Labs: done Images: not applicable Referrals: not applicable Vaccines due: Covid, Flu, PCV20, Tdap, and Zoster Screenings: colonoscopy and mammogram Overdue care gaps: SBIRT, SDOH, and PHQ-9 documented in this encounter Plan of Treatment Upcoming Encounters Date Type Department Care Team (Late st Contact Info) Description 02/23/2025 4:00 PM EST Office Visit [facility] [address] [place] [address] Humza Centeon MD [address] [place] [address] documented as of this encounter Visit Diagnoses Not on filedocumented in this encounter Care Teams Chemical Dependency Professional Relationship Specialty Start Date End Date Humza Centeno MD [address] [place] [address] PCP - General Internal Medicine 11/26/24 documented as of this encounter
--- OUTSIDE RECORDS SUMMARY | 2024-12-31 19:52 | XMS_ITS | Encounter Summary ---
Author Organization [employer] Address [address] [facility] 7t [place] [address] Care Team Providers Care Pharmacist Helper Name Role Phone Humza Centeno MD Primary Care Prov ider Reason for Visit * Reason Onset Date Comments Nurse Triage 11/30/2024 Encounter Details Date Type Department Care Team ([facility] st Contact Info) Description 11/30/2024 Telephone [facility] [address] [place] [address] Humza Centeno MD [address] [place] [phone] Nurse Triage Social History Tobacco Use Types Packs/Day Years Used Date Smoking Tobacco: Never Smokeless Tobacco: Never Alcohol Use Standard Drinks/Week Comments Never 0 (1 standard drink = 0.6 oz pur e alcohol) Comments Unknown Sex and Gender Information Value Date Recorded Sex Assigned at Female 02/05/2022 10:32 AM EDT Legal Sex Female 10:32 AM EDT Gender Identity Female 11/17/2024 11:14 AM EDT Sexual Orientation Straight 11/17/2024 11 :14 AM EDT documented as of this encounter Miscellaneous Notes * Telephone Encounter - Bettye Ybarra RN - 11/30/2024 10:04 AM EDT Triage call Pt son Pa is sitting by Pt to speak for Pt. Pt reports rectal pain from hemorrhoids.Pt denies bleeding. Pt reports a surgery many years ago and now there is a slight bulge at the surgical site which is the rectal area. Pt denies constipation but, reports diarrhea 2-3 times daily which is either watery or just soft stool. Pt denies diarrhea today but, hasn't eaten yet and this happens every time Pt eats. Pt reports this has been occurring for several years. Pt reports weight lossdue to this. Pt requests cream for rectal area . Pt is advised to come to [facility] [address] [place]. Son and Pt agree with this disposition. Insurance is verified as active. Pt does have PE scheduled for . Protocol Used: Rectal Symptoms (Adult) Protocol-Based Disposition: See in Office or Video Visit Today Positive Triage Question: * Moderate-Severe rectal pain (i.e., interferes with school, work, or sleep) * All higher-acuity triage questions were negative Care Advice Discussed: * Reassurance and Education - Mild Rectal Pain or Irritation * Reasons To Call Back - Severe rectal pain - Rectal pain not improved after 3 days - Rectal bleeding is more than minor (such as more than just blood on toilet paper or few drops) - Rectal bleeding is minor but is ongoing (such as occurs over 2 times) - You become worse * Telephone Encounter - Selam Gray - 11/30/2024 9:34 AM EDT Symptom: Rectal Bleeding Outcome: Schedule an urgent appointment (within 1 hour) or talk to a nurse or provider soon Reason: Caller denied all higher acuity questions The caller accepted this outcome. Contact pt at [phone] Need food handler Son is next to her and he speak palauan documented in this encounter Plan of Treatment Upcoming Encounters Date Type Department Care Team (Late st Contact Info) Description 02/23/2025 4:00 PM EST Office Visit [facility] [address] [place], [place] [phone] Humza Centeno MD [address] [place] [phone] documented as of this encounter Visit Diagnoses Not on filedocumented in this encounter Care Teams Pharmacist Helper Relationship Specialty Start Date End Date Humza Centeno MD [address] [place] [phone] PCP - General Internal Medicine 11/26/24 documented as of this encounter
[2025-01-01 08:37] LABS: HIV Num 1 0.06 S/CO (0.00-0.99); ~HepC Num1 0.15 S/CO (0.00-0.79); ~Hepatitis C Antibody Nonreactive (Nonreactive)
[2025-01-03 20:39] LABS: TS Negative Control Passed; TS Panel A 2; TS Panel B 2; TS Positive Control Passed; TSpotTB Negative (Negative)
== END 2024-12-31 15:58 | disposition home or self-care (01) ==
LOC: HO.CHCLDS 15:57
PROVIDERS: Visit Provider Internal Medicine
DX: Z11.1 Encounter for screening for respiratory tuberculosis (principal); Z13.1 Encounter for screening for diabetes mellitus; Z11.59 Encounter for screening for other viral diseases; Z11.4 Encounter for screening for human immunodeficiency virus [HIV]; E66.3 Overweight; D64.9 Anemia, unspecified
CPT/HCPCS: 36415; 80053; 80061; 82607; 82746; 83036; 83540; 84439; 84443; 85025; 86481; 86803; 87389